=== PATIENT | male | born 1930 | race Caucasian/White ===

== ENCOUNTER 2017-07-25 13:41 | Emergency (ER) | payer MEDICARE ==
--- OUTSIDE RECORDS SUMMARY | 2017-07-25 13:52 | XMS REPORT ---
:1930 External Reference #:[id number] Author Organization [facility] Address [address] [place] [address] Phone [phone] Care Team Providers Name Role Phone Jose Raul Barr M.D. 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 Active atrpc w/o sbfvl invl Onset: 02/03/2016 Retinal edema Angel Rockwell M.D. 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 Active degeneration of left eye Onset: 06/07/2016 Age-related exudative macular Benjamin Trotter M.D. Active degeneration of right eye Onset: 02/24/2017 Foreign body in cornea, left eye, Benjamin Trotter M.D. Active initial encounter Family History Date Family Member(s) Problem(s) Comments Father No Current Problems Mother No Current Problems Social History Type Date Description Comments Marital Status Single Occupation [employer] Work Status Part-Time Employment ETOH Use Occasionally consumes beer Smoking Patient is a former smoker Recreational Drug Use Denies Drug Use Daily Caffeine Consumes on average 1 cup of hot tea per day Allergies, Adverse Reactions, Alerts Date Description Reaction Status Severity Comments 02/10/2015 NKDA active Medications Medication Date Status Form Strength Qnty SIG Indications Ordering Provider Lovastatin / Active Tablets 20mg Shallish, 0000 Jose Raul M.D. Amlodipine / Active Tablets 10mg Shallish, Besylate 0000 Jose Raul M.D. Aspir-81 / Active Tablets DR 81mg 1 by Unknown 0000 mouth 3x/week Erythromycin 03/08/ Hx Ointment 5mg/GM 1Tube apply T15.02xD Sherry Reynolds 2018 - thin [place], 04/18/ strip to O.D. 2018 left eye at bedtime for 2 weeks Erythromycin 02/27/ Hx Ointment 5mg/GM 1Tube apply T15.02xD Sherry JVania 2018 - thin [place], 04/18/ strip to O.D. 2018 left eye at bedtime Ciprofloxacin 02/24/ Hx Solution 0.2% 14unit 1 drop Z96.1 Benjamin Reynolds HCL 2018 - s left eye Arleo, 03/07/ four M.D. 2018 times a day, for 5 days Pred Forte 02/24/ Hx Suspension 1% 5ml One drop T15.02xA Benjamin Reynolds 2018 - four Arleo, 03/07/ times a M.D. 2018 day in your left eye for 5 days Aspirin Adult / Hx Tablets DR 81mg every day Unknown Low Dose 0000 - 2016 Medications Administered in Office Medication Date Status Form Strength Qnty SIG Indications Ordering Provider Avastin Administered Injection Benjamin Reynolds Bevacizumab 017 Megan Trotter Avastin Administered Injection Benjamin Reynolds Bevacizumab 017 Megan Trotter Avastin Administered Injection Benjamin Reynolds Bevacizumab 017 Megan Trotter Avastin Administered Injection Benjamin Reynolds Bevacizumab 017 Megan Trotter Avastin Administered Injection Benjamin Reynolds Bevacizumab 017 Megan Trotter Avastin Administered Injection Benjamin Reynolds Bevacizumab 017 Megan Trotter Avastin Administered Injection Angel Bevacizumab Francesca Rockwell M.D. Avastin Administered Injection Angel Bevacizumab Francesca Rockwell M.D. Avastin Administered Injection Angel Bevacizumab Francesca Rockwell M.D. Vital Signs Date Vital Result Comment 09/12/2016 BP Systolic 130 mmHg BP Diastolic 60 mmHg Heart Rate 62 /min Respiratory Rate 13 /min 07/11/2016 BP Systolic 128 mmHg BP Diastolic 60 mmHg Heart Rate 62 /min Respiratory Rate 12 /min 05/16/2016 BP Systolic 150 mmHg BP Diastolic 59 mmHg Heart Rate 70 /min Respiratory Rate 16 /min 04/12/2016 BP Systolic 150 mmHg BP Diastolic 78 mmHg Heart Rate 64 /min Respiratory Rate 12 /min 04/05/2016 BP Systolic 130 mmHg BP Diastolic 58 mmHg Heart Rate 64 /min Respiratory Rate 14 /min 02/23/2016 BP Systolic 170 mmHg BP Diastolic 68 mmHg Heart Rate 58 /min Respiratory Rate 12 /min 02/03/2016 BP Systolic 128 mmHg BP Diastolic 60 mmHg Heart Rate 65 /min Respiratory Rate 16 /min 01/06/2016 BP Systolic 120 mmHg BP Diastolic 53 mmHg Heart Rate 62 /min Respiratory Rate 12 /min 12/02/2015 BP Systolic 130 mmHg BP Diastolic 59 mmHg Heart Rate 58 /min Respiratory Rate 16 /min Results Description No Information Procedures Date CPT Code Description Status 04/20/2017 00559 Scanning Computerized Opthalmic Diagnostic Posterior Completed Seg Retina 04/20/2017 41534 Est Patient Intermediate Exam Completed 03/08/2017 29307 Determination Of Refractive State Completed 02/24/2017 72281 Scanning Computerized Opthalmic Diagnostic Posterior Completed Seg Retina 02/24/2017 03645 Est Patient Comprehensive Exam Completed 02/07/2017 88168 Scanning Computerized Opthalmic Diagnostic Posterior Completed Seg Retina 02/07/2017 46654 Determination Of Refractive State Completed 02/07/2017 07218 Est Patient Intermediate Exam Completed 09/27/2016 15971 Est Patient Comprehensive Exam Completed 09/27/2016 36121 Scanning Computerized Opthalmic Diagnostic Posterior Completed Seg Retina 09/12/2016 54670 Injection Intravitreal Of A Pharmacologic Agent Completed 07/11/2016 29032 Injection Intravitreal Of A Pharmacologic Agent Completed 06/07/2016 70882 Scanning Computerized Opthalmic Diagnostic Posterior Completed Seg Retina 06/07/2016 99832 Est Patient Comprehensive Exam Completed 05/16/2016 25744 Injection Intravitreal Of A Pharmacologic Agent Completed 04/12/2016 40040 Injection Intravitreal Of A Pharmacologic Agent Completed 04/05/2016 78816 Injection Intravitreal Of A Pharmacologic Agent Completed 02/23/2016 46638 Injection Intravitreal Of A Pharmacologic Agent Completed 02/16/2016 02441 Scanning Computerized Opthalmic Diagnostic Posterior Completed Seg Retina 02/03/2016 26106 Injection Intravitreal Of A Pharmacologic Agent Completed 01/06/2016 28963 Injection Intravitreal Of A Pharmacologic Agent Completed 12/02/2015 40237 Injection Intravitreal Of A Pharmacologic Agent Completed 11/26/2015 27728 Scanning Computerized Opthalmic Diagnostic Posterior Completed Seg Retina 11/26/2015 57499 Est Patient Comprehensive Exam Completed 02/10/2015 27721 Est Patient Comprehensive Exam Completed 02/10/2015 91098 Fundus Photography With Interpretation And Report Completed 05/05/2014 74691 Determination Of Refractive State Completed 05/05/2014 72978 Est Patient Comprehensive Exam Completed 01/22/2014 06660 Extracapsular Cataract Extraction W/Intraocular Lens Completed 01/15/2014 98959 Extracapsular Cataract Extraction W/Intraocular Lens Completed 01/10/2014 09165 Ophthalmic Biometry Completed 01/10/2014 78369 Ophthalmic Biometry Completed 01/10/2014 45583 Scanning Computerized Opthalmic Diagnostic Posterior Completed Seg Retina 12/25/2013 77566 New Patient Comprehensive Exam Completed Encounters Type Date Location Provider CPT E/M Dx Office Visit 03/17/2017 Benjamin Trotter MD, Sherry Roque, 09891 T15.02xD 11:20a pc O.D. Office Visit 03/08/2017 Benjamin Trotter MD, Sherry Roque, 18768 T15.02xD 1:00p pc O.D. Z96.1 H35.3223 H35.3212 Office Visit 03/02/2017 11:00a Sherry Mendez, 12830 T15.02xD , O.D. Office Visit 02/27/2017 11:00a Sherry Mendez, 04786 T15.02xD , pc O.D. Office Visit 02/25/2017 9:45a Natalya Mendez O.D. 58562 T15.02xD , Office Visit 02/16/2016 9:30a Benjamin Trotter Angel Luli, 98438 H35.3231 , M.DVania Z96.1 Office Visit 01/10/2014 1:00p Benjamin Trotter MD, Benjamin Trotter, 32186 366.16 Noemí.Katie 362.51 Plan of Care 07/20/2017 - Benjamin Trotter M.D.H35.3222 Exdtve age-rel mclr degn, left eye, with actv chrdl neovasComments:Smoking can increase the risk of developing or worsening any eye related disease, as well as affect your overall health. If you are a smoker, we strongly recommend that you quit.If you are not a smoker, we strongly recommend that you do not start. Dr. Trotter would like to refer you for a second opinion to a Retinal Specialist in [place]. The name of the group is [facility]. Willam or Meena will arrange your appointment with their office and will fax any necessary information to them. They will provide you with the name of the doctor you are seeing, appointment time, and directions. 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 At this time, we will just monitor your condition. What you can see right now is your baseline, so if you have any changes at all in your vision , please call our office as soon as you notice symptoms to schedule an appointment. Continue to monitor your vision, with each eye separately. Use your Amsler Grid and continue taking theAREDS 2 Formula Vitamins.Follow up: Stable after TX - monitor. Patient ed. on symptoms of reoccurrence, knows to call office to scheduleappointment if anything changes.Z96.1 Presence of intraocular lensComments:The artificial lens implants in both eyes appear to be stable at this time.
[2017-07-25 14:04] VITALS: BP 160/77
--- NOTE | 2017-07-25 14:14 | UC ---
Truncal Trauma HPI - HPI Summary HPI Summary: 87 yo male presents accompanied by his friend. Pt tells me that he was standing on a picnic table with another tim to adjust an awning. The awning fell and pt fell onto the grass on his LEFT side. The other tim fell onto pt's RIGHT side. Did not hit his head. No LOC. Was immediately ambulatory. 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 Currently he is experiencing left rib pain and upper/mid back pain with certain movements. Denies numbness or tingling. Denies cough or SOB. - History Of Current Complaint Chief Complaint: UCBackPain Stated Complaint: BACK/RIBS /CHEST INJURY Time Seen by Provider: 07/25/17 14:14 Hx Obtained From: Patient, Family/Mobile Application Tester Onset/Duration: Sudden Onset Severity Initially: Moderate Severity Currently: Mild Pain Intensity: 4 Pain Scale Used: 0-10 Numeric - Allergies/Home Medications Allergies/Adverse Reactions: Allergies Allergy/AdvReac Type Severity Reaction Status Date / Time No Known Allergies Allergy Verified 07/25/17 14:04 PMH/Surg Hx/FS Hx/Imm Hx Endocrine History: Dyslipidemia Cardiovascular History: Hypertension - Surgical History Surgical History: Yes Surgery Procedure, Year, and Place: Broken leg bone repair 16 years [id number], PROSTATECTOMY, [facility] SURGERY FROM ACCIDENT - Family History Known Family History: Negative: Hypertension - SISTER, Diabetes, Respiratory Disease - Social History Occupation: Retired Lives: With Family Alcohol Use: Daily Alcohol Amount: 3 beers daily Substance Use Type: None Smoking Status (MU): Former Smoker Type: Cigarettes Amount Used/How Often: 2 PACKS A WEEK Have You Smoked in the Last Year: No When Did the Patient Quit Smoking/Using Tobacco: 1969 Review of Systems Constitutional: Negative Skin: Other - Abrasion over T2-T3 Eyes: Negative Respiratory: Negative Cardiovascular: Negative Gastrointestinal: Negative Neurovascular: Negative Musculoskeletal: Other: - Mild TTP left ribs Neurological: Negative Psychological: Negative All Other Systems Reviewed And Are Negative: Yes Physical Exam - Summary Physical Exam Summary: GENERAL: NAD. WDWN. No pain distress. SKIN: Superficial abrasion to upper back along T2-T3. NECK: Supple. NTTP. FROM. CHEST: CTAB. No accessory muscle use. Breathing comfortably and in no distress. CV: RRR. Without m/r/g. Pulses intact radial and ulnar. MSK: B/L UEs FROM. 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 No edema or obvious bony deformities. LEFT RIBS: Mild TTP along anterior 6th-8th rib. NEURO: Alert. Sensations intact hand and all fingers. PSYCH: Age appropriate behavior. Triage Information Reviewed: Yes Vital Signs: Initial Vital Signs Temp 97.6 F 07/25/17 13:56 Pulse 53 07/25/17 13:56 Resp 20 07/25/17 13:56 BP 160/77 07/25/17 13:56 Pulse Ox 96 07/25/17 13:56 Truncal Trauma Course/Dx - Course Course Of Treatment: XR: IMPRESSION: NO ACUTE RIB FRACTURE. CT: IMPRESSION: No fracture of the thoracic spine is noted. Multilevel degenerative disc disease is noted. Schmorl's node inferior endplate of T10. Contusion and abrasion. Advised to continue taking tylenol or ibuprofen prn pain and f/u prn. - Differential Dx/Diagnosis Provider Diagnoses: Fall. Abrasion upper back. Left rib contusion Discharge - Sign-Out/Discharge Documenting (check all that apply): Discharge/Admit/Transfer - Discharge Plan Condition: Stable Disposition: HOME Patient Education Materials: Contusion in Adults (ED) Referrals: Jose Raul Barr MD [Primary Care Provider] - Additional Instructions: If you develop a fever, shortness of breath, chest pain, new or worsening symptoms - please call your PCP or go to the ED. Your blood pressure was mildly elevated at todays visit. Please see your primary provider within 4 weeks for recheck and re-evaluation. - Billing Disposition and Condition Condition: STABLE Disposition: Home
--- NOTE | 2017-07-25 14:50 | RAD ---
INDICATION: Fall. Trauma COMPARISON: None TECHNIQUE: Multiple views of the ribs were obtained. FINDINGS: Bones: There is no evidence of acute rib fracture. LUNGS: The lungs are clear. There is no pneumothorax. Pleural spaces: There is no evidence of hemothorax. Other: None IMPRESSION: NO ACUTE RIB FRACTURE.
--- NOTE | 2017-07-25 15:07 | RAD ---
Indication: T1-T4 pain. CT of the thoracic spine was obtained in the axial plane. Sagittal and coronal reconstructed images were obtained. The vertebral bodies appear normal in height. No evidence of compression fracture is noted. This space narrowing at C4-C5, T5-T6, T6-T7, T7-T8, T9-T10, T10-T11 and T11-T12 is noted. Incidentally noted are Schmorl's node at the inferior endplate of T10. Bridging syndesmophytes are noted at T11-T12 and T12-L1. The left lung apex demonstrates scarring. This was present on prior chest CT dated December 22, 2014. IMPRESSION: No fracture of the thoracic spine is noted. Multilevel degenerative disc disease is noted. Schmorl's node inferior endplate of T10.
== END 2017-07-25 15:25 | disposition home or self-care (01) ==
LOC: UCEAST 13:41
DX: S20.412A Abrasion of left back wall of thorax, initial encounter (principal); S20.20XA Contusion of thorax, unspecified, initial encounter; W17.89XA Other fall from one level to another, initial encounter; Y93.89 Activity, other specified; Y92.9 Unspecified place or not applicable; M51.34 Other intervertebral disc degeneration, thoracic region; E78.5 Hyperlipidemia, unspecified; I10 Essential (primary) hypertension; Z87.891 Personal history of nicotine dependence
CPT/HCPCS: 72128; 99211; G0463